=== PATIENT | male | born 1990 | race Caucasian/White ===

== ENCOUNTER → 2021-01-27 | Outpatient (CLI) | payer OTHER ==
[~2021-01-27] MED LIST: BECL40OI INH; CYCL10 PO; HYDACE5 PO; NAPR500 PO; OXYACE5T PO; SULTRIDS PO
== END ==
LOC: LAB 15:03 → LAB SHORT 15:03
DX: D48.5 Neoplasm of uncertain behavior of skin (principal); D22.5 Melanocytic nevi of trunk; Z88.1 Allergy status to other antibiotic agents; Z88.8 Allergy status to other drugs, medicaments and biological substances
CPT/HCPCS: 88305